=== PATIENT | female | born 1965 | race Two or more races ===

== ENCOUNTER 2018-04-28 08:06 | Outpatient (CLI) | payer OTHER | END 2018-04-28 09:08 | disposition home or self-care (01) | LOC: SONOGRAMA 08:06 → MAMO-SONO 08:15 → SONOGRAMA 09:08 | DX: R10.32 Left lower quadrant pain (principal) ==

== ENCOUNTER 2019-04-10 18:07 | Outpatient (CLI) | payer OTHER | END 2019-04-10 18:47 | disposition home or self-care (01) | LOC: LAB 18:07 | DX: J11.1 Influenza due to unidentified influenza virus with other respiratory manifestations (principal) ==

== ENCOUNTER 2020-11-18 21:11 | Emergency (ER) | payer OTHER ==
[~2020-11-18] VITALS: Ht 175.3 cm; Wt 77.1 kg
[2020-11-19] MEDS ORDERED: VISTARIL50 MG PO (00:44)
== END 2020-11-19 01:06 | disposition home or self-care (01) ==
LOC: ER 21:11
DX: R00.2 Palpitations (principal)

== ENCOUNTER 2021-02-01 08:08 | Outpatient (CLI) | payer OTHER ==
[~2021-02-01 08:08] MED LIST: VISTARIL50 MG PO
== END 2021-02-01 08:44 | disposition home or self-care (01) ==
LOC: SONOGRAMA 08:08
PROVIDERS: ATTEND Pathology Anatomic Pathology & Clinical Pathology
DX: E04.2 Nontoxic multinodular goiter (principal)

== ENCOUNTER 2022-03-04 16:28 | Outpatient (CLI) | payer OTHER | END 2022-03-04 16:32 | disposition home or self-care (01) | LOC: LAB 16:28 | PROVIDERS: ATTEND General Practice | DX: Z20.822 Contact with and (suspected) exposure to COVID-19 (principal) ==

== ENCOUNTER 2023-12-05 09:32 | Emergency (ER) | payer OTHER ==
[~2023-12-05] VITALS: Ht 175.3 cm; Wt 68.9 kg
== END 2023-12-05 11:57 | disposition home or self-care (01) ==
LOC: ER 09:34
DX: K64.1 Second degree hemorrhoids (principal)

== ENCOUNTER 2024-01-13 09:41 | Outpatient (CLI) | payer OTHER | END 2024-01-13 09:56 | disposition home or self-care (01) | LOC: RAD 09:41 | PROVIDERS: ATTEND Colon & Rectal Surgery | DX: K64.2 Third degree hemorrhoids (principal); K64.4 Residual hemorrhoidal skin tags; K92.2 Gastrointestinal hemorrhage, unspecified ==

== ENCOUNTER 2024-01-24 05:35 | Day surgery (SDC) | payer OTHER ==
[2024-01-24] MEDS ORDERED: BUPIVACAINE LIPOSOME/PF 266 MG/20 ML VIAL IJ ONE (08:00)
[2024-01-24] MEDS ORDERED: BUPIVACAINE HCL 30 ML VIAL IJ ONE (08:00)
[2024-01-24] MEDS ORDERED: CEFTRIAXONE SODIUM 2,000 MG VIAL IV ONE (08:00)
[2024-01-24] MEDS ORDERED: METROnidazole 500 MG TABLET PO ONE (08:00)
[2024-01-24] MEDS ORDERED: DIBUCAINE 30 GM TUBE RECTAL ONE (08:00)
[2024-01-24] MEDS ORDERED: HEMOSTATIC MATRIX 1 KIT KIT TOP ONE ×2 (08:00→10:30)
[2024-01-24] MEDS ORDERED: MORPHINE SULFATE 4 MG/ML VIAL IV ONE ×2 (09:35→10:50)
== END 2024-01-24 14:30 | disposition home or self-care (01) ==
LOC: CIR.AMB 05:35
PROVIDERS: ATTEND Colon & Rectal Surgery
DX: K64.2 Third degree hemorrhoids (principal); K64.4 Residual hemorrhoidal skin tags

== ENCOUNTER 2024-08-05 14:02 | Emergency (ER) | payer OTHER ==
[~2024-08-05] VITALS: Ht 175.3 cm; Wt 70.3 kg
[2024-08-05 17:24] LABS: HEMATOCRIT 35.6 % (36.0-45.00); HEMOGLOBIN 12.2 g/dL (12.0-15.00); MEAN CELL VOLUME 93.6 fL (80.00-100.00); MEAN CORPUSCULAR HEMOGLOBIN 32.2 pg (27.00-32.0); MEAN CORPUSCULAR HGB CONC 34.4 g/dl (32.0-36.0); PLATELET COUNT 270 K/uL (150-450); RED CELL DISTRIBUTION WIDTH 13.6 % (11.5-14.5)
[2024-08-05 17:37] LABS: URINE APPEARANCE Clear; URINE BILIRRUBIN Negative (NEGATIVE); URINE BLOOD Negative; URINE COLOR Yellow; URINE GLUCOSE Negative (NEGATIVE); URINE KETONE Negative (NEGATIVE); URINE LEUKOCYTE Negative; URINE NITRATE Negative; URINE PROTEIN Negative (NEGATIVE); URINE UROBILINOGEN 0.2 E.U./dl
[2024-08-05 17:41] LABS: URINE BACTERIA 37.8 uL (0.0-1933); URINE EPITHELIAL CELLS 3.3 uL (0.0-38.8); URINE WBC 3.9 uL (0.0-23.2)
[2024-08-05 17:47] LABS: URINE RBC 0.4 uL (0.0-20.8)
[2024-08-05 17:55] LABS: ALBUMIN 3.9 gm/dL (3.4-5.0); BILIRUBIN TOTAL 0.43 mg/dL (0.3-1.2); CALCIUM 9.7 mg/dL (8.5-10.1); CREATININE SERUM 0.67 mg/dL (0.55-1.02); GFR 90.4; GLOBULINA 4.6 G/DL (2.4-3.5); POTASSIUM 3.51 mEq/L (3.5-5.1); TOTAL PROTEIN 8.5 gm/dL (6.4-8.2)
== END 2024-08-05 20:57 | disposition home or self-care (01) ==
LOC: ER 14:02
PROVIDERS: General Practice
DX: R10.811 Right upper quadrant abdominal tenderness (principal); Z01.30 Encounter for examination of blood pressure without abnormal findings